=== PATIENT | female | born 1955 | race Caucasian/White ===

== ENCOUNTER → 2016-09-13 09:33 | Outpatient (CLI) | payer MEDICAID ==
[2016-03-12 11:50] VITALS: BMI 18.7
[~2016-09-13 09:33] MED LIST: ATIVAN2 MG PO; Atropine 1% Opht dro SL; BAYER CHEWABLE81 MG PO; CELEXA20 MG PO; CELEXA40 MG PO; K-TAB10 MEQ PO; LIBRAX CAPSULE1 CAP PO; OXYCODONE HCL5 MG PO; OXYCONTIN10 MG PO; PHENERGAN25 M1 PO; PLAVIX75 MG PO; PROTONIX40 MG PO; PROVENTIL HFA6.7 GM INH; REGLAN10 MG PO; ROXICODONE15 MG PO; SANDOSTATI500 MCG/ML SC; SYNTHROID75 MCG PO; TENORMIN25 MG PO; TOPAMAX50 MG PO; ZOFRAN8 MG PO
== END | disposition home or self-care (01) ==
LOC: D.US 09:33
DX: E04.1 Nontoxic single thyroid nodule (principal)

== ENCOUNTER → 2017-03-23 10:25 | Outpatient (CLI) | payer MEDICAID ==
[2016-03-12 11:50] VITALS: BMI 18.7
== END | disposition home or self-care (01) ==
LOC: D.US 03-22 09:00
DX: E04.1 Nontoxic single thyroid nodule (principal)

== ENCOUNTER 2017-09-27 06:16 | Inpatient (IN) | payer MEDICAID ==
[2017-09-26 11:28] LABS: HEMATOCRIT 45.6 % (36.0-48.0); HEMOGLOBIN 15.3 g/dL (12-16); LYMPHOCYTES 29.4 % (15-50); MCH 30.4 pg (26.0-34.0); MCHC 33.6 g/dL (31.0-37.0); MCV 90.7 fL (80.0-100.0); MEAN PLATELET VOLUME 9.1 fL (7.4-10.4); NEUTROPHILS 63.1 % (40-80); RBC 5.03 10x6/uL (4.00-5.40); RDW 12.8 % (11.5-14.5); WBC 6.9 10x3/uL (4.8-10.8)
[2017-09-26 11:34] LABS: ALBUMIN 3.7 g/dL (3.4-5.0); ANION GAP 11.7 mmol/L (8-16); BILIRUBIN - TOTAL 0.5 mg/dL (0.2-1.3); CALCIUM 9.2 mg/dL (8.5-10.1); CARBON DIOXIDE 27.2 mmol/L (21.0-32.0); CREATININE - SERUM 0.9 mg/dL (0.6-1.3); POTASSIUM - SERUM 3.9 mmol/L (3.5-5.1); PROTEIN - SERUM 7.5 g/dL (6.4-8.2)
[2017-09-26 11:35] LABS: PLATELET COUNT 360 10x3/uL (130-400)
[~2017-09-27] VITALS: Ht 167.6 cm; Wt 54.5 kg
--- NOTE | ~2017-09-27 | OP ---
PATIENT NAME: SUSANNE LUDWIG MEDICAL RECORD: [id number] :57 LOCATION:[id number] ADMISSION DATE:09/27/17 SURGEON: JEFFREY AG MD DATE OF OPERATION: 09/27/2017 SURGEON: Jeffrey Ag MD PREOPERATIVE DIAGNOSIS: A 3-cm right thyroid nodule. POSTOPERATIVE DIAGNOSIS: A 3-cm right thyroid nodule. PROCEDURE PERFORMED: Total thyroidectomy. ANESTHESIA: General. COMPLICATIONS: None. SPECIMENS: Total thyroid. ESTIMATED BLOOD LOSS: 50 cc. Case was clean. OPERATIVE COURSE: After consent was obtained, the patient was taken to the operating room and placed in the supine position on the operating table. General anesthesia was given via endotracheal intubation after a timeout was performed that confirmed the correct patient and procedure. A shoulder roll was placed and neck was prepped and draped in typical sterile fashion. Local anesthetic was injected, incision was made with a 15 blade scalpel. Dissection continued with electrocautery through the platysma. Subplatysmal flaps were created. The median raphe was taken down with electrocautery. The strap muscles were retracted laterally. We started on the left side. The left thyroid lobe was identified. The left inferior parathyroid was identified. It was dissected off the thyroid gland. It was transected after the application of clips with Metzenbaum scissors. Next, the superior left parathyroid gland was identified. The vessels and the gland were dissected off the superior pole. It was divided using combination of clips and Metzenbaum scissor dissection. The superior pole was taken down to the application of clips with electrocautery. Next, the middle thyroid artery and vein were ligated after the application of clips. The left lobe was completely mobilized immediately, was taken off the trachea using electrocautery. The left superior laryngeal nerve was meticulously dissected and identified. It was seen entering without injury into the trachea. At this time, the right thyroid lobe was mobilized medially. The inferior parathyroid was identified. The inferior vessels and parathyroid were taken off the thyroid and were ligated off the thyroid with clips and sharp scissor dissection. The superior parathyroid was identified. It was again dissected off the thyroid, clips were applied, the superior pole of thyroid was transected using electrocautery after the application of clips. Next, the middle thyroid artery and vein were identified. They were doubly clipped and ligated with sharp Metzenbaum scissor dissection. The remaining portion of the thyroid was then dissected medially until the dissection was completed along the trachea which was finished with electrocautery. The specimen was marked and sent for permanent pathology. The right superior laryngeal nerve was then meticulously dissected and identified. It was seen seen without injury running along its course of the tracheoesophageal groove and into the trachea. At this OPERATIVE REPORT [id number] SUSANNE LUDWIG, the wound bed was copiously irrigated and suctioned. Careful attention was paid to hemostasis, which was obtained with clips and electrocautery. Surgicel was also applied. The strap muscles were reapproximated using 2-0 chromic suture. The platysma was reapproximated using 3-0 Vicryl. The skin was closed with 4-0 Stratafix, Mastisol, and Steri-Strips. At the end of the case, all needle and instrument counts were correct. No complications occurred. The patient was extubated and transferred to the PACU in stable condition. TRANSINT:[id number] Voice Confirmation ID: [id number] DOCUMENT ID: [id number] JEFFREY AG MD at 2111 CC: [id number] DICTATION DATE: 09/27/17 1315 MICROBIOLOGY SOIL SCIENTIST: 09/27/17 1401 [facility] [place] [id number] [place] [address]
[~2017-09-27 06:16] MED LIST changes: +BENADRYL25 MG PO; +CENTRUM SILVER1 TA1 PO; +CYCLOBENZAPRINE10 MG PO; +LOMOTIL TABLET1 TAB PO; +LYRICA50 MG PO
[2017-09-27 09:08] VITALS: BP 108/57; BMI 19.4
[2017-09-27 14:06] LABS: ALBUMIN 3.3 g/dL (3.4-5.0); CALCIUM 8.5 mg/dL (8.5-10.1)
[2017-09-27 14:35] VITALS: BP 171/84
[2017-09-27 14:52] VITALS: BP 171/84; Ht 167.6 cm; Wt 54.5 kg
[2017-09-27 19:52] LABS: ALBUMIN 3.5 g/dL (3.4-5.0); THYROID STIMULATING HORMONE 0.51 uIU/mL (0.36-3.74)
[2017-09-28 04:39] VITALS: BP 119/67
[2017-09-28 04:51] VITALS: BP 122/59
[2017-09-28 06:18] LABS: ALBUMIN 3.3 g/dL (3.4-5.0); CALCIUM 7.9 mg/dL (8.5-10.1); THYROID STIMULATING HORMONE 0.35 uIU/mL (0.36-3.74)
[2017-09-28 06:31] VITALS: BP 130/64
[2017-09-28] MEDS ORDERED: ROCALTROL0.5 MCG PO (08:02)
[2017-09-28] MEDS ORDERED: TUMS X-STR300 MG PO (08:02)
[2017-09-28] MEDS ORDERED: OXYCODONE HCL5 MG PO (08:03)
[2017-09-28 08:35] VITALS: BP 119/60
[2017-09-28 12:46] VITALS: BP 94/44
[2017-09-28 16:06] VITALS: BP 95/47
== END 2017-09-28 19:53 | disposition home or self-care (01) | DRG 627 ==
LOC: D.SDCHOLD 06:16 → D.MS 06:16 → D.SDCHOLD 10:00 → D.MS 14:12
PROVIDERS: Anesthesiology; Surgery
PROC: 0GTK0ZZ Resection of Thyroid Gland, Open Approach (ICD-10-PCS; principal; 2017-09-27 10:30)
DX: D34 Benign neoplasm of thyroid gland (principal)

== ENCOUNTER 2017-10-02 14:11 | Emergency (ER) | payer MEDICAID ==
[2017-09-27 14:52] VITALS: BMI 19.4
[~2017-10-02 14:11] MED LIST changes: +ROCALTROL0.5 MCG PO; +TUMS X-STR300 MG PO
[2017-10-02 15:40] LABS: BASOPHILS 0.4 % (0-2); HEMATOCRIT 42.7 % (36.0-48.0); HEMOGLOBIN 14.6 g/dL (12-16); IMMATURE GRANULOCYTES 0.4 % (0-5); LYMPHOCYTES 30.6 % (15-50); MCH 30.4 pg (26.0-34.0); MCHC 34.2 g/dL (31.0-37.0); MCV 88.8 fL (80.0-100.0); MEAN PLATELET VOLUME 9.5 fL (7.4-10.4); MONOCYTES 9.3 % (2-11); NEUTROPHILS 56.3 % (40-80); PLATELET COUNT 424 10x3/uL (130-400); RBC 4.81 10x6/uL (4.00-5.40); RDW 12.2 % (11.5-14.5)
[2017-10-02 15:45] LABS: ALBUMIN 3.4 g/dL (3.4-5.0); ALKALINE PHOSPHATASE 97 U/L (46-116); ALT (SGPT) 14 U/L (10-68); BILIRUBIN - TOTAL 0.55 mg/dL (0.2-1.3); CALC OSMOLALITY 279 mosm/kg (275-300); CARBON DIOXIDE 21.8 mmol/L (21.0-32.0); CHLORIDE - SERUM 102 mmol/L (98-107); CREATININE - SERUM 0.8 mg/dL (0.6-1.3); GLUCOSE 92 mg/dL (74-106); POTASSIUM - SERUM 3.8 mmol/L (3.5-5.1); PROTEIN - SERUM 7.9 g/dL (6.4-8.2); SODIUM 140 mmol/L (136-145); UREA NITROGEN 15 mg/dL (7-18); eGFR NON AFRICAN AMERICAN 77 mL/min (90-120)
[2017-10-02 15:54] LABS: THYROID STIMULATING HORMONE 0.14 uIU/mL (0.36-3.74)
== END 2017-10-02 18:07 | disposition home or self-care (01) ==
LOC: D.ER 14:11
PROVIDERS: Family Medicine
DX: G89.18 Other acute postprocedural pain (principal); R07.0 Pain in throat; L93.0 Discoid lupus erythematosus; I10 Essential (primary) hypertension

== ENCOUNTER → 2017-11-02 11:58 | Outpatient (CLI) | payer MEDICAID ==
[2017-09-27 14:52] VITALS: BMI 19.4
[2017-11-02 13:01] LABS: CALCIUM 9.2 mg/dL (8.5-10.1); THYROID STIMULATING HORMONE 0.97 uIU/mL (0.36-3.74)
== END | disposition home or self-care (01) ==
LOC: D.RAD 11:45
PROVIDERS: Surgery
DX: Z90.89 Acquired absence of other organs (principal); E04.1 Nontoxic single thyroid nodule; E89.0 Postprocedural hypothyroidism

== ENCOUNTER → 2017-11-09 11:05 | Outpatient (CLI) | payer MEDICAID ==
[2017-09-27 14:52] VITALS: BMI 19.4
== END | disposition home or self-care (01) ==
LOC: D.CT 11:05
DX: R06.1 Stridor (principal)

== ENCOUNTER → 2018-07-06 14:11 | Outpatient (CLI) | payer MEDICAID ==
[2017-09-27 14:52] VITALS: BMI 19.4
== END | disposition home or self-care (01) ==
LOC: D.CT 07-04 08:00
DX: S09.90XA Unspecified injury of head, initial encounter (principal); X58.XXXA Exposure to other specified factors, initial encounter

== ENCOUNTER 2019-02-07 09:00 | Outpatient (CLI) | payer MEDICAID ==
[2017-09-27 14:52] VITALS: BMI 19.4
== END 2019-02-07 10:00 | disposition home or self-care (01) ==
LOC: D.MAMMO 09:00
PROVIDERS: ATTEND Family Medicine
DX: Z12.31 Encounter for screening mammogram for malignant neoplasm of breast (principal)

== ENCOUNTER 2020-05-20 18:18 | Emergency (ER) | payer MEDICAID ==
[~2020-05-20] VITALS: Ht 167.6 cm; Wt 51.4 kg
[2020-05-20 18:30] VITALS: BP 121/57; Ht 167.6 cm; Wt 51.4 kg
[2020-05-20 19:47] LABS: BASOPHILS 0.4 % (0-2); HEMATOCRIT 44.1 % (36.0-48.0); HEMOGLOBIN 14.3 g/dL (12-16); IMMATURE GRANULOCYTES 0.1 % (0-5); LYMPHOCYTES 41.5 % (15-50); MCH 29.1 pg (26.0-34.0); MCHC 32.4 g/dL (31.0-37.0); MCV 89.8 fL (80.0-100.0); MEAN PLATELET VOLUME 9.4 fL (7.4-10.4); PLATELET COUNT 477 10x3/uL (130-400); RBC 4.91 10x6/uL (4.00-5.40); WBC 7.5 10x3/uL (4.8-10.8)
[2020-05-20 19:48] LABS: BILIRUBIN NEGATIVE (NEGATIVE); KETONE NEGATIVE (NEGATIVE); NITRITE NEGATIVE (NEGATIVE); UROBILINOGEN NORMAL mg/dL (< 2)
[2020-05-20 20:31] LABS: ANION GAP 9.8 mmol/L (8-16); CALCIUM 9.1 mg/dL (8.5-10.1); CARBON DIOXIDE 26.9 mmol/L (21.0-32.0); CREATININE - SERUM 0.9 mg/dL (0.6-1.3); POTASSIUM - SERUM 3.7 mmol/L (3.5-5.1)
[2020-05-20 20:34] LABS: ALBUMIN 3.3 g/dL (3.4-5.0); BILIRUBIN - TOTAL 0.2 mg/dL (0.2-1.3); PROTEIN - SERUM 7.5 g/dL (6.4-8.2)
[2020-05-20 23:38] LABS: C-REACTIVE PROTEIN 1.9 mg/dL (0.0-0.9); CREATINE KINASE 73 UL (21-215); LIPASE 191 U/L (73-393); MAGNESIUM - SERUM 2.1 mg/dL (1.8-2.4)
[2020-05-20 23:39] LABS: TROPONIN-I < 0.017 ng/mL (0.000-0.060)
[2020-05-20 23:48] LABS: UDS - AMPHET NEGATIVE QUAL (NEGATIVE); UDS - BARB NEGATIVE QUAL (NEGATIVE); UDS - BENZO NEGATIVE QUAL (NEGATIVE); UDS - COCAINE NEGATIVE QUAL (NEGATIVE); UDS - OPIATE POSITIVE QUAL (NEGATIVE); UDS - PCP NEGATIVE QUAL (NEGATIVE); UDS - THC POSITIVE QUAL (NEGATIVE)
== END 2020-05-21 01:41 | disposition home or self-care (01) ==
LOC: D.ER 18:18
PROVIDERS: Family Medicine
DX: R10.9 Unspecified abdominal pain (principal); G89.29 Other chronic pain; M32.9 Systemic lupus erythematosus, unspecified

== ENCOUNTER 2020-06-15 05:57 | Day surgery (SDC) | payer MEDICAID ==
[~2020-06-15] VITALS: Ht 167.6 cm; Wt 52.7 kg
[2020-06-15 06:22] LABS: HEMATOCRIT 44.4 % (36.0-48.0); HEMOGLOBIN 14.4 g/dL (12-16); MCH 28.9 pg (26.0-34.0); MCHC 32.4 g/dL (31.0-37.0); MCV 89.2 fL (80.0-100.0); MEAN PLATELET VOLUME 9.9 fL (7.4-10.4); RBC 4.98 10x6/uL (4.00-5.40); RDW 13.1 % (11.5-14.5); WBC 7.8 10x3/uL (4.8-10.8)
[2020-06-15 06:49] LABS: INR 1.03 (0.85-1.17); PROTIME 13.4 SECONDS (11.6-15.0)
[2020-06-15 07:00] LABS: APTT 32.5 SECONDS (22.8-39.4)
[2020-06-15] MEDS ORDERED: MORPHINE SULFAT15 M4 PO (07:06)
[2020-06-15] MEDS ORDERED: TRAZODONE HCL100 MG PO (07:08)
[2020-06-15] MEDS ORDERED: APRISO0.375 GM PO (07:09)
[2020-06-15] MEDS ORDERED: CYCLOBENZAPRINE10 MG PO (07:10)
[2020-06-15] MEDS ORDERED: NEURONTIN 400400 MG PO (07:10)
[2020-06-15 07:17] VITALS: BP 131/61; Ht 167.6 cm; Wt 52.7 kg
--- NOTE | 2020-06-15 09:56 | NUR ---
0932 IV DC'D AFTER GIVING PATIENT A FLUID BOLUS FOR LOW B/P. PT HAS BEEN UP AND AMBULATING WITHOUT DIZZINESS. CATHETER TIP INTACT. NO BLEEDING AT SITE AFTER HOLDING PRESSURE. BANDAID APPLIED. 0939 PT IS READY FOR DISCHARGE AND HAS DISCHARGE PACKET. PT AND HER SON IN LAW VOICE UNDERSTANDING OF INSTRUCTIONS AND FOLLOW UP TESTING.
--- NOTE | 2020-06-15 16:53 | OP ---
PATIENT NAME: SUSANNE LUDWIG MEDICAL RECORD: [id number] :57 LOCATION:[facility] ADMISSION DATE: SURGEON: CRISTINA CHUA DO DATE OF OPERATION: 06/15/2020 PROCEDURE: EGD with biopsies. INDICATIONS FOR PROCEDURE: Generalized abdominal pain, dysphagia, nausea. SCOPE: Olympus video gastroscope. MEDICATIONS: Propofol 160 mg IV per anesthesia. ESTIMATED BLOOD LOSS: Minimal. COMPLICATIONS: None. FINDINGS: Informed consent was given. The patient was made comfortable with the above medication. After reaching an adequate level of sedation by slow IV push, the patient was placed on her left side. The endoscope was advanced under direct visualization through the mouth to the second portion of the duodenum with ease. The esophagus appeared normal down to the GE junction. Cold forcep biopsies were taken from the mid esophagus to rule out the presence of eosinophils. At the GE junction, there were changes consistent with LA class A reflux-induced esophagitis. Biopsies were taken at the squamocolumnar junction with cold forceps. The endoscope was advanced beyond the GE junction into the stomach and retroflexed to view the cardia and fundus. A small sliding hiatal hernia was present. There were no associated ulcerations or other abnormalities with this hernia. Throughout the stomach, there was some erythema and granularity and some congestion in a patchy distribution consistent with chronic gastritis changes. Cold forcep biopsies were taken from the antrum and incisura to submit for histopathology and to rule out the presence of H. pylori. The endoscope was advanced beyond the pylorus into the duodenum, which appeared normal to the second portion. Cold forcep biopsies were taken from the duodenum to submit for histopathology regarding the patient's change in bowel habits. The endoscope was then withdrawn from the patient. The patient tolerated the procedure well and there were no complications. IMPRESSION: 1. LA class A reflux-induced esophagitis. 2. Small sliding hiatal hernia. 3. Gastritis. PLAN AND RECOMMENDATIONS: 1. Discharge home when recovery parameters are met. 2. Follow up biopsy specimen results. 3. GERD diet and reflux precautions. 4. Continue current medications. 5. Omeprazole 40 mg daily times 60 days. After that time, it will be decided if she needs to continue antacid therapy and if so, what dose and which medication for long-term use. 6. PIPIDA scan regarding the patient's nausea and abdominal pain. 7. Consider gastric emptying scan if the PIPIDA is normal and omeprazole is not helping symptoms. 8. Schedule colonoscopy regarding the generalized abdominal pain and possible OPERATIVE REPORT [id number] SUSANNE LUDWIG Crohn's by serology testing. TRANSINT:[id number] Voice Confirmation ID: [id number] DOCUMENT ID: [id number] CRISTINA CHUA DO at 1653 CC: [id number] DICTATION DATE: 06/15/20813 METAL ROOFING MECHANIC: 06/15/2035 [facility] 06/15/20 [id number] [place] [address]
== END 2020-06-15 09:39 | disposition home or self-care (01) ==
LOC: D.OPS 05:57
PROVIDERS: Anesthesiology; ATTEND Internal Medicine Gastroenterology
DX: R10.84 Generalized abdominal pain (principal); R13.10 Dysphagia, unspecified; R11.0 Nausea; K21.00 Gastro-esophageal reflux disease with esophagitis, without bleeding; K44.9 Diaphragmatic hernia without obstruction or gangrene; K29.70 Gastritis, unspecified, without bleeding; R19.7 Diarrhea, unspecified; K52.9 Noninfective gastroenteritis and colitis, unspecified; R63.4 Abnormal weight loss